=== PATIENT | female | born 1960 ===

== ENCOUNTER 2022-11-16 08:27 | Inpatient (IN) | payer OTHER ==
[2022-11-16 11:01] VITALS: BMI 25.4
[2022-11-20] MEDS ORDERED: BUPIVACAINE HCL/PF 0.25% (2.5MG/ML) 10 ML VIAL ONE (09:44)
[2022-11-20] MEDS ORDERED: HEPARIN NA (PORCINE) 5,000 UNITS/ML 1ML VIAL ONE (09:44)
[2022-11-20] MEDS ORDERED: cefOXitin SODIUM 2 GM VIAL (RESTRICTED TO ID) IVPB ONE (09:44)
[2022-11-20] MEDS ORDERED: PROPOFOL 40 ML ONE (11:41)
[2022-11-20] MEDS ORDERED: MIDAZOLAM HCL 2 MG/2 ML SINGLE DOSE VIAL ONE (11:42)
[2022-11-20] MEDS ORDERED: ROCURONIUM BROMIDE 50 MG/5 ML SYRINGE ONE (11:42)
[2022-11-20] MEDS ORDERED: SUCCINYLCHOLINE CHLORIDE 200 MG/10 ML SYRINGE ONE (11:49)
[2022-11-20] MEDS ORDERED: ACETAMINOPHEN INJECTION 100 ML IVPB ONE (12:13)
[2022-11-20] MEDS ORDERED: BUPIVACAINE HCL/PF 0.25% (2.5MG/ML) 10 ML VIAL IJ ONE (13:06)
[2022-11-20] MEDS ORDERED: ONDANSETRON 4 MG/2 ML VIAL IVPUSH PRN (13:39)
[2022-11-20] MEDS ORDERED: PROMETHAZINE HCL 25 MG/1 ML VIAL IVPB PRN (13:39)
[2022-11-20 15:51] VITALS: RESP 18
[2022-11-20 17:44] VITALS: BP 137/54; PULSE 64; TEMP 97.8
== END 2022-11-20 18:03 | disposition home or self-care (01) | DRG 343 ==
LOC: EDBD → J2C 11-20 04:18
PROVIDERS: ADMIT Surgery; ATTEND Surgery
PROC: 0DJ08ZZ Inspection of Upper Intestinal Tract, Via Natural or Artificial Opening Endoscopic (ICD-10-PCS; 2022-11-20)
PROC: 0DB64ZZ Excision of Stomach, Percutaneous Endoscopic Approach (ICD-10-PCS; principal; 2022-11-20 12:00)
DX: C49.A2 Gastrointestinal stromal tumor of stomach (principal)
CPT/HCPCS: 86850; 86900; 86901; 88309-TC; 94760; J1644